=== PATIENT | female | born 1990 | race Caucasian/White ===

== ENCOUNTER 2018-12-03 23:34 | Emergency (ER) | payer BC ==
[~2018-12-03] VITALS: Ht 162.6 cm; Wt 72.6 kg
--- NOTE | 2018-12-04 00:24 | NUR ---
URINE COLLECTED AND SENT TO LAB
--- NOTE | 2018-12-04 00:25 | NUR ---
BIBS FOR C/O URINARY FREQUENCY X24 HRS. NO HEMATURIA, NO DYSURIA, VSS. LMP: 11/22/18
[2018-12-04 00:32] LABS: APPEARANCE,URINE Clear (CLEAR); BILIRUBIN,URINE Negative (NEGATIVE); BLOOD, URINE Negative Ery/uL (NEGATIVE); COLOR,URINE Yellow (YELLOW); KETONES,URINE Negative (NEGATIVE); LEUKOCYTE ESTERASE ,URINE Negative (NEGATIVE); NITRITE, URINE Negative (NEGATIVE); PROTEIN,URINE Negative (NEGATIVE); UGLUCOSE Negative (NEGATIVE); UROBILINOGEN,URINE 0.2 EU/dL (0.2)
[2018-12-04] MEDS ORDERED: DOXYCYCLINE HYCLATE (100 MG) 100 MG TABLET ONE (00:59)
[2018-12-04] MEDS ORDERED: LIDOCAINE 1% INJ 50 ML MDV IJ ONE (00:59)
[2018-12-04] MEDS ORDERED: CEFTRIAXONE 1 G VIAL ONE (00:59)
[2018-12-04] MEDS ORDERED: CEFTRIAXONE 1 G VIAL IM ONE (01:00)
[2018-12-04] MEDS ORDERED: DOXYCYCLINE HYCLATE (100 MG) 100 MG TABLET PO ONE (01:00)
--- NOTE | 2018-12-04 01:18 | NUR ---
Patient discharged to home in stable condition. RX & Written and verbal after care instructions given. Patient verbalizes understanding of instruction.
[2018-12-04 01:20] VITALS: BP 127/79
== END 2018-12-04 01:22 | disposition home or self-care (01) ==
LOC: ER 23:40
DX: R35.0 Frequency of micturition (principal); Z88.1 Allergy status to other antibiotic agents
CPT/HCPCS: 81001; 84703; 87491; 87591; 96372; 99283; J0696; J3490; 81000-TC